=== PATIENT | male | born 1980 | race Caucasian/White ===

== ENCOUNTER → 2017-11-03 | Day surgery (SDC) | payer OTHER ==
[~2017-11-03] VITALS: Ht 175.3 cm; Wt 66.7 kg
[~2017-11-03] MED LIST: AUGMENTIN 875-1 EACH PO; HEARTBURN RELI150 MG PO; LAMICTAL25 M1 PO; MULTIVITAMINS1 EAC9 PO; SUDAFED30 MG PO
--- NOTE | 2017-11-03 09:35 | Operative Report ---
See Addendum Operative/Inv Procedure Report Surgery Date: 11/03/17 Name of Procedure: Endoscopic surgery with 1. Nasal septal reconstruction 2. Inferior turbinate submucous resection, bilateral 3. Middle turbinate reduction, bilateral Pre-Operative Diagnosis: 1. Deviated nasal septum 2. Inferior turbinate hypertrophy, bilateral 3. Middle turbinate hypertrophy, bilateral Post-Operative Diagnosis: Same Estimated Blood Loss: less than 50ml Surgeon/Priming Mixture Carrier: Zeny Owen MD Anesthesia: general endotracheal tube Specimens: Septum and turbinates Complications: Non- Condition: Stable on leaving the OR Operative Indication: Difficulty breathing through the nose, nasal congestion x several years Chronic sinusitis x years Patient treated with multiple antibiotics, antihistamines, decongestants, steroid and antihistamine nasal sprays with limited improvement, with improvement but then recurrence Frequent facial pressures and headaches Operative/Procedure Note Note: The patient was brought to the operating room. Placed on the operating room table in supine position. At first timeout was performed identifying the patient, ID numbers and procedure to be performed. Next general oral endotracheal anesthesia was induced. Endotracheal tube was secured with tape over the left corner of the lip. Operating room table was rotated 90 to the left and patient was positioned for septal surgery with head slightly hyperextended and rotated to the right. At first vasoconstriction was carried by application of Afrin spray on cottonoid pledgets. Next nasal septum was injected with 1% lidocaine with 1: 100,000 epinephrine approximately 9 mL was injected on the right and another 6 mL on the left. This followed by placement of cotton pledgets saturated with cocaine solution and Afrin spray. Patient's face was then prepped and draped in routine manner and surgery was performed. A hemitransfixion incision was placed and anterior mucoperichondrial tunnel was elevated followed by posterior mucoperiosteal tunnel. Bony cartilaginous junction was identified and and mucoperiosteal tunnel was elevated on the contralateral side. And anteriorly there was quadrangular septum projection to the right. This was removed in a piecemeal manner. Posteriorly there was vomerine bone deviation septal spurring to the right. The vomerine spur was removed in a piecemeal manner. Some of the vomerine bone superiorly was also removed in a piecemeal manner which relieved posterior superior obstruction. During removal of the septal mucosal tear was encountered which was to serve as a drainage hole. Septoplasty was completed. Once the septoplasty was completed, prior to closure, left middle turbinate was injected with 3 cc of 1% lidocaine with 1:100,000 epinephrine. This followed by placement of cottonoid pledgets saturated with Afrin and cocaine. Septoplasty incision was closed with 5-0 chromic simple sutures. Followed by a mattress sutures with 5-0 chromic. Please note that the entire septoplasty was carried with 0 scope as well as directed visualization with a headlight. Upon closure of septoplasty incision injection was carried out on the right. Right middle turbinate was injected with 3 cc of 1% lidocaine with 1:100,000 epinephrine. This followed by placement of cottonoid pledgets saturated with Afrin and cocaine. Next left middle turbinate was reduced along its inferior border with Gruenwald forceps. This followed by similar reduction of right middle turbinate along its inferior border with frontal forceps. Next inferior turbinates were then in and outfractured and excised in submucous manner. This was done with 0 scope visualization. Surgery was completed. Nasal packing was applied next. Nasal fossa was packed with Telfa saturated with Bactroban ointment. Telfa was stitched anteriorly with 2-0 silk to prevent posterior displacement. Surgery was completed. The patient was reawakened, extubated and taken to the recovery room in good condition. There were no complications. Estimated blood was was 20 mL. Findings: 1. Nasal septum- deviated to the right anterior superior and the right posterior vomerine bone with spurring 4. Middle turbinates- hypertrophy with obstruction of the middle meatus bilateral 5. Inferior Turbinates- hypertrophy with obstruction of the inferior meatus Discharge Disposition: PACU anteriorly with 2-0 silk to prevent posterior displacement. Surgery was completed. The patient was reawakened, extubated and taken to the recovery room in good condition. There were no complications. Estimated blood was was []. Findings: 1. Nasal septum- deviated to the posterior vomerine bone with spurring 4. Middle turbinates- paradoxical curve with obstruction of the middle meatus bilateral 5. Inferior Turbinates- hypertrophy with obstruction of the inferior meatus Discharge Disposition: PACU
== END ==
LOC: STS 01:51
DX: J34.2 Deviated nasal septum (principal); J34.3 Hypertrophy of nasal turbinates; J32.9 Chronic sinusitis, unspecified; R51 Headache; K21.9 Gastro-esophageal reflux disease without esophagitis
CPT/HCPCS: J0131; J0690; J2250